=== PATIENT | female | born 1980 | race Hispanic/Latino ===

== ENCOUNTER 2025-06-30 20:27 | Emergency (ER) | payer SELFPAY ==
[~2025-06-30] VITALS: Ht 162.6 cm; Wt 81.6 kg
--- NOTE | 2025-06-30 20:37 | ERN ---
ED Note History of Present Illness Stated Complaint: SUICIDAL IDEATION Chief Complaint: Suicidal Ideation Time Seen by MD: 20:32 Dictation: This is a 44-year-old female who presented to the emergency room via EMS stating that she was tired of life and wanted to . She was quite tearful and was screaming stating she did not want to live. She tried to cut herself with a serrated knife on her forearms. She stated that she has had a long history of depression and she has been drinking all day. She did report that she has had nausea and vomitings and during my evaluation she was extremely emotional tearful and gagging and attempting to vomit. She appeared unkempt and urinated on herself She denied any homicidal ideations or delusions. She also did not have any plan for the suicide. Temperature 97.4 pulse 95 respirations 17 blood pressure 128/75 with a pulse oximetry of 98% on room air Her chronic medical problems include depression and solitary kidney details unclear Allergies: Coded Allergies: No Known Drug Allergies (Unverified Allergy, Unknown, 06/30/25) Past Medical History PSYCH History: depression Family History: Negative Social History: ETOH RN Note Reviewed/Agreed w/PFSH: Yes Review of System Dictation Constitutional: Negative for fever,chills, and weight loss Eyes: Negative for injury, pain,redness, and discharge ENT: Negative for injury,pain or swelling Cardiovascular: Negative for chest pain, palpitations, and edema Respiratory: Negative for shortness of breath, cough, and wheezing, Abdomen/GI: Negative for abdominal pain, nausea, vomiting, diarrhea, and constipation Back: Negative for injury and pain : Negative for injury, bleeding and discharge MS/Extremity: Negative for injury and deformity Skin: Negative for rash, and discoloration Neuro: Negative for headache, weakness, numbness, tingling, and seizure Psych: Positive for suicide ideation, denied homicidal ideation, and hallucinations Initial Vital Sign VS Vital Signs Date Time Temp Pulse Resp B/P (MAP) Pulse Ox O2 Delivery O2 Flow Rate FiO2 06/30/25 20:29 97.3 95 17 128/75 98 Room Air 06/30/25 21:50 0 21 Physical Exam Dictation General: awake, alert, NAD obese female, very tearful emotional stating wants to , unkempt Head/Face: Normocephalic, atraumatic Eyes: PERRL, EOMI, vision at baseline ENT: oral cavity clear, TMs clear, no signs of infection Neck: Trachea midline, supple, no nuchal rigidity Cardiovascular: RRR, normal S1/S2, No MRGs, no JVD Respiratory: CTAB, no respiratory distress, No rales or wheezes Abdomen: Soft, non-tender, non-distended, normal bowel sounds, no guarding or rebound. Skin: Warm, dry, normal turgor, no rash, wet shots from urinating on herself, small cuts on her forearms from self-inflicted injuries-no active bleeding. MS/Extremity: Pulses equal, no cyanosis, neurovascular intact, FROM Neuro: COAx4, GCS 15, strength 5/5, CN 2-12 intact, normal cerebellar exam, normal gait, Psych: Normal behavior, mood, and affect normal Extremities-trace edema without any palpable cords, Homans sign is negative Results (Laboratory/Radiology) Laboratory/Radiology Laboratory Tests Test 06/30/25 20:48 06/30/25 23:12 07/01/25 04:56 White Blood Count 19.6 K/uL (4.8-10.8) H Red Blood Count 4.83 MIL/uL (4.00-5.50) Hemoglobin 13.2 g/dL (12.0-16.0) Hematocrit 40.9 % (36-48) Mean Corpuscular Volume 84.7 fL (79-99) Mean Corpuscular Hemoglobin 27.3 pg (27.0-33.0) Mean Corpuscular Hemoglobin Concent 32.3 g/dL (32.0-36.0) Red Cell Distribution Width 13.7 % (11.0-15.5) Platelet Count 332 K/uL (130-400) Mean Platelet Volume 9.1 fL (7.5-10.5) Immature Granulocyte % (Auto) 0.5 % (0-1) Neutrophils (%) (Auto) 79.7 % (40.0-77.0) H Lymphocytes (%) (Auto) 16.2 % (21.0-51.0) L Monocytes (%) (Auto) 3.0 % (3.0-13.0) Eosinophils (%) (Auto) 0.4 % (0.0-8.0) Basophils (%) (Auto) 0.2 % (0.0-5.0) Neutrophils # (Auto) 15.6 K/uL (1.8-7.7) H Lymphocytes # (Auto) 3.2 K/uL (1.0-4.8) Monocytes # (Auto) 0.6 K/uL (0.1-1.0) Eosinophils # (Auto) 0.07 K/uL (0.00-0.70) Basophils # (Auto) 0.04 K/uL (0.00-0.20) Absolute Immature Granulocyte (auto 0.10 K/uL (0-1) Nucleated Red Blood Cells 0.0 % (0.0-0.19) Sodium Level 136 mmol/L (136-145) Potassium Level 3.6 mmol/L (3.5-5.1) Chloride Level 100 mmol/L (101-111) L Carbon Dioxide Level 27 mmol/L (21-32) Blood Urea Nitrogen 9 mg/dL (7-18) Creatinine 0.8 mg/dL (0.5-1.0) Glomerular Filtration Rate Calc 93 mL/min (>90) Random Glucose 106 mg/dL (70-105) H Total Calcium 8.0 mg/dL (8.5-10.1) L Total Creatine Kinase 111 U/L (21-232) Serum Test, Qualitative NEGATIVE (NEGATIVE) Salicylates Level < 2.8 mg/dL (2.8-20.0) L Acetaminophen Level < 1 mcg/mL (10-30) L Serum Alcohol 239 mg/dL (0-10) H 62 mg/dL (0-10) H Urine Color LIGHT-YELLOW (YELLOW) Urine Appearance CLOUDY (CLEAR) H Urine pH 5.5 (5.0-8.0) Urine Specific [place] 1.017 (1.001-1.031) Urine Protein 70 mg/dL (NEGATIVE) H Urine Glucose (UA) NEGATIVE mg/dL (NEGATIVE) Urine Ketones NEGATIVE mg/dL (NEGATIVE) Urine Occult Blood LARGE (NEGATIVE) H Urine Nitrate NEGATIVE (NEGATIVE) Urine Bilirubin NEGATIVE mg/dL (NEGATIVE) Urine Urobilinogen 0.2 mg/dL (0.2-1.0) Urine Leukocyte Esterase 250 Aarti/uL (NEGATIVE) H Urine RBC 11-25 /HPF (0-1) H Urine WBC 51-100 /HPF (0-1) H Urine Squamous Epithelial Cells FEW /HPF (0-2) Urine Other Crystals (Auto) 3 /HPF (None Seen) Urine Bacteria None /HPF (None Seen) Urine Opiates Screen NEGATIVE (NEGATIVE) Urine Barbiturates Screen NEGATIVE (NEGATIVE) Urine Phencyclidine Screen NEGATIVE (NEGATIVE) Urine Amphetamines Screen NEGATIVE (NEGATIVE) Urine Benzodiazepines Screen NEGATIVE (NEGATIVE) Urine Cocaine Screen NEGATIVE (NEGATIVE) Urine Marijuana (THC) Screen NEGATIVE (NEGATIVE) Amylase Level 69 U/L (25-115) Lipase 38 U/L (16-77) Labs Reviewed?: Yes ED Course ED Course Orders Procedure Category Date Status Time Cbc With Differential LAB 06/30/25 Complete 20:32 Alcohol, Blood LAB 06/30/25 Complete 20:32 Salicylate LAB 06/30/25 Complete 20:32 Acetaminophen LAB 06/30/25 Complete 20:32 Testing, LAB 06/30/25 Complete Serum Hcg 20:32 Urinalysis Profile LAB 06/30/25 Complete 20:32 Creatine Kinase, Total LAB 06/30/25 Complete 20:32 Basic Metabolic Panel LAB 06/30/25 Complete 20:32 Drug Screen Urine LAB 06/30/25 Complete 20:32 Diazepam 5 Mg/Ml 2 Ml PHA 06/30/25 Complete Syg (Valium 5 Mg/M 23:00 M.V.I. Iv [Adult] PHA 07/01/25 Complete (M.V.I. Iv [Adult])... 09:00 Ondansetron 4mg Inj PHA 06/30/25 Complete (Zofran 4mg Inj) 23:00 Culture Urine LACHELLE 06/30/25 In Process 23:24 M.V.I. Iv [Adult] PHA 07/01/25 Complete (M.V.I. Iv [Adult])... 00:30 Ceftriaxone 1g Vial PHA 07/01/25 Complete (Rocephine 1g Inj) 04:30 Ondansetron 4mg Inj PHA 07/01/25 Complete (Zofran 4mg Inj) 05:00 Ondansetron 4mg Inj PHA 07/01/25 Complete (Zofran 4mg Inj) 04:32 Alcohol, Blood LAB 07/01/25 Complete 04:46 Acetaminophen 325 Tab PHA 07/01/25 Complete (Tylenol 325mg Tab 05:00 Amylase LAB 07/01/25 Complete 05:37 Lipase LAB 07/01/25 Complete 05:37 Current Medications Medications (Trade) Dose Ordered Sig/Adi Route PRN Reason Start Time Stop Time Status Last Admin Dose Admin Acetaminophen (TYLenol 325MG TAB) 650 mg ONCE ONCE PO 07/01/25 05:00 07/01/25 05:02 DC 07/01/25 05:13 Ceftriaxone Sodium (ROCEphine 1G INJ) 1 gm ONCE ONCE IVPB 07/01/25 04:30 07/01/25 04:31 DC 07/01/25 04:20 Diazepam (VALium 5 MG/ML 2 ML SYG) 2.5 mg ONCE ONCE IVP 06/30/25 23:00 06/30/25 23:01 DC 06/30/25 23:04 Multivitamins/ Minerals 10 ml/ Folic Acid 1 mg/ Thiamine HCl 100 mg/Sodium Chloride 1,010 ml @ 100 mls/hr DAILY IV 07/01/25 09:00 07/01/25 00:11 DC Multivitamins/ Minerals 10 ml/ Folic Acid 1 mg/ Thiamine HCl 100 mg/Sodium Chloride 1,010 ml @ 100 mls/hr ONCE ONCE IV 07/01/25 00:30 07/01/25 07:46 DC 07/01/25 00:48 Ondansetron HCl (zoFRAN 4MG INJ) 4 mg ONCE ONCE IVP 07/01/25 05:00 07/01/25 05:01 DC 07/01/25 04:41 Ondansetron HCl (zoFRAN 4MG INJ) 4 mg STK-MED ONCE .ROUTE 06/30/25 23:00 06/30/25 23:01 DC 06/30/25 23:04 Ondansetron HCl (zoFRAN 4MG INJ) 4 mg STK-MED ONCE .ROUTE 07/01/25 04:32 07/01/25 04:38 DC Vital Signs Date Time Temp Pulse Resp B/P (MAP) Pulse Ox O2 Delivery O2 Flow Rate FiO2 07/01/25 07:45 98.6 78 17 125/84 99 Room Air* 0 07/01/25 06:46 98.8 85 16 126/67 98 Room Air* 0 21 07/01/25 03:30 86 16 124/70 98 Room Air* 0 06/30/25 21:50 97.5 92 16 122/76 98 Room Air* 0 21 06/30/25 20:29 97.3 95 17 128/75 98 Room Air We will perform diagnostic labs, and administer medications according to the patient's complaint. Once the results are available, will review and personally interpreted the labs to rule out any acute life-threatening emergency the trach require immediate intervention and treatment. I will then re-evaluate the patient after treatment and diagnostic exams have return to determine whether the patient requires any further testing, can safely be discharged home or need further admission to hospital for additional treatment and evaluation. Banana bag, antiemetics and IV fluids initiated 10:00 p.m. labs still pending patient is finally resting after symptomatic treatment. No no indication for any suturing at this time 10:32 p.m. CBC showed a white count of 19.6 platelets 332. BNP 7 reviewed. ETOH level was 239 rest of the tox screens are negative. 11:30 p.m. additional antiemetic given patient resting. We will allow her to sober up and repeat the alcohol level. Behavioral health consultation once she is medically cleared. 2:00 a.m. resting comfortably 4:30 a.m.-repeat alcohol level requested pending at this time, amylase and lipase also requested. 5:15 a.m. amylase and lipase are within normal limits repeat alcohol level 69. Behavioral health specialist consulted 6:52 a.m. behavioral health screener currently actively evaluating the patient. Based on the recommendations final discharge disposition. 7:10 a.m. care transition to Dr. Reeves Medical Decision Making MDM MDM: Differential diagnosis: Psychiatric illness, suicidal ideation, depression anxiety alcohol-induced psychiatric effects Rationale: Tests considered and ordered secondary to shared decision making include: Previous outside records reviewed: Old ER visits. Risk of complication and/or morbidity or mortality of patient management: None Medications-Per medication reconciliation Need for hospitalization: Patient does not meet criteria for hospitalization. Need for emergency major/minor surgery: No Patient was evaluated by mental health facility states they will treat patient in the outpatient facility. Patient is no longer suicidal states he is stable we will follow up with them accordingly. Patient will be discharged in stable condition. Problem List Problem List: (1) Suicidal ideations (2) Depression (3) Alcohol abuse DX & DISP Disposition: Discharge Departure Impression: Primary Impression: Suicidal ideations Additional Impressions: Depression, Alcohol abuse Condition: Stable Additional Instructions: FOLLOW-UP WITH PRIMARY CARE PROVIDER IN 1 TO 2 DAYS. TAKE MEDICATIONS DIRECTED HERE IN THE EMERGENCY ROOM. OKAY TO CONTINUE HOME MEDICATIONS UNLESS OTHERWISE DISCUSSED DURING YOUR VISIT IN THE EMERGENCY ROOM TODAY. RETURN TO YOUR NEAREST EMERGENCY ROOM IF SYMPTOMS WORSEN OR IF THERE IS NO IMPROVEMENT. CALL 911 IF YOU NEED IMMEDIATE ASSISTANCE. TAKE TYLENOL AENA-FGL-HXCHSCD NEEDED AND IF NO CONTRAINDICATIONS ARE PRESENT. INCREASE ORAL HYDRATION. A WOUND CULTURE OR URINE CULTURE WAS ORDERED HERE IN THE EMERGENCY ROOM DEPARTMENT PLEASE FOLLOW-UP WITH PRIMARY CARE PROVIDER AND ADVISE THEM TO GET REPORTS FROM OUR FACILITY. IF YOU HAD ANY ONI WRAP/SPLINTS THAT WERE APPLIED HERE, PLEASE DO NOT REMOVE THEM UNTIL YOU SEE YOUR PRIMARY CARE OR SPECIALTY. Referrals: Referrals: SELF,REFERRAL (PCP) GYPSY AGGARWAL MD Time of Disposition: 07:25 NICOLASA PANDA MD Jun 30, 2025 20:37 MARRY REEVES MD Jul 01, 2025 07:26
--- NOTE | 2025-06-30 20:45 | NUR ---
PATIENT AMBULATED TO BATHROOM, DID NOT COLLECT URINE SPECIMEN
[2025-06-30 20:55] LABS: IMMATURE GRANULOCYTE ABSOLUTE 0.10 K/uL (0-1); NUCLEATED RED BLOOD CELLS 0.0 % (0.0-0.19); PLATELET COUNT (AUTO) 332 K/uL (130-400); RED BLOOD CELL COUNT(AUTO) 4.83 MIL/uL (4.00-5.50); RED CELL DISTRIBUTION WIDTH 13.7 % (11.0-15.5); WHITE BLOOD COUNT (AUTO) 19.6 K/uL (4.8-10.8)
[2025-06-30 21:10] LABS: CREATININE 0.8 mg/dL (0.5-1.0); GLOMERULAR FILTR. RATE CALC 93 mL/min (>90); GLUCOSE,RANDOM 106 mg/dL (70-105); SODIUM SERUM 136 mmol/L (136-145); UREA NITROGEN, BLOOD 9 mg/dL (7-18)
[2025-06-30 21:16] LABS: ALCOHOL, BLOOD 239 mg/dL (0-10); CREATINE KINASE, TOTAL 111 U/L (21-232)
--- NOTE | 2025-06-30 22:49 | NUR ---
PATIENT URINATED ON SELF, ELOPED THROUGH EMS [facility], ASSISTED PATIENT BACK INTO ER. PATIENT STATING SHE WANTS TO GO HOME, STATES SHE HAS AN AUTISTIC SON WHO NEEDS MEDICATIONS. EXPLAINED TO PATIENT THAT SHE MAY NOT LEAVE DUE TO BEING INTOXICATED, STATES SHE CAN CALL HER DAUGHTER TO PICK HER UP. ATTEMPTED TO CALL DAUGHTER AT PHONE NUMBER PROVIDED BY PATIENT, PATIENT'S PHONE NUMBER IS NOT ACCEPTING CALLS. DAUGHTER FEBRUARY, PHONE # [phone]
[2025-06-30 23:23] LABS: APPEARANCE,URINE CLOUDY (CLEAR); GLUCOSE, URINE (UA) NEGATIVE (NEGATIVE); LEUKOCYTE ESTERASE ,URINE 250 Leu/uL (NEGATIVE); NITRATE,URINE NEGATIVE (NEGATIVE); OCCULT BLOOD,URINE LARGE (NEGATIVE)
[2025-06-30 23:24] LABS: ADD UA MICROSCOPIC YES
[2025-06-30 23:25] LABS: SQUAMOUS EPITHELIAL CELL,UR FEW /HPF (0-2); UNCLASSIFIED CRYSTAL 3 /HPF (None Seen)
[2025-06-30 23:37] LABS: AMPHET/METH SCREEN,URINE NEGATIVE (NEGATIVE); BARBITURATE SCREEN, URINE NEGATIVE (NEGATIVE); CANNABINOID SCREEN,URINE NEGATIVE (NEGATIVE); COCAINE SCREEN,URINE NEGATIVE (NEGATIVE)
[2025-07-01] MEDS: M.V.I. IV [ADULT] 10 ML, FOLic ACID 5 MG/ML VIAL 1 MG, THIAMINE HCL 100 MG in 0.9%NACL ... IV ONE (00:48)
--- NOTE | 2025-07-01 04:14 | NUR ---
RECEIVED CALL FROM PATIENTS DAUGHTER FOR STATUS UPDATE, CORRECT PHONE # [phone]
--- NOTE | 2025-07-01 04:34 | NUR ---
PATIENT ACTIVELY VOMITING, INCONTINENT OF URINE
--- NOTE | 2025-07-01 04:55 | NUR ---
PATIENT REPORTS HEADACHE, REQUESTING PAIN MEDICATION, DR PANDA AWARE AND VERBAL ORDERS RECEIVED
--- NOTE | 2025-07-01 05:21 | NUR ---
CONTACTED [facility] CRISIS LINE TO INITIATE SCREENING, SPOKE WITH KUMAR, WILL CONTACT LABORATORY ADMINISTRATIVE DIRECTORCOURIER DRIVER
--- NOTE | 2025-07-01 05:42 | NUR ---
PATIENT IS AWAKE, MORE RESPONSIVE TO QUESTIONS ABOUT SI AND PLAN. PATIENT REPORTS DOMESTIC ISSUES, DISCOVERED HER LONGTIME PARTNER AND FATHER OF CHILDREN HAS BEEN HAVING AN AFFAIR, ARGUED WITH PARTNER AND PARTNER LEFT TO BE WITH THE WOMAN HE HAS BEEN HAVING AN AFFAIR WITH. PATIENT IS TEARFUL STATING SHE GAVE HIM EVERYTHING FOR OVER 20 YEARS JUST TO LEAVE HER. STATES SHE IS TIRED OF LIFE, ALSO SPEAKS ABOUT 19 YEAR OLD SON WITH AUTISM, CONCERNED ABOUT WHAT WILL HAPPEN TO HER SON IF SHE DIES. DOES NOT HAVE A SPECIFIC PLAN FOR SUICIDE.
--- NOTE | 2025-07-01 06:12 | NUR ---
LEIDY, SCREENER WITH [facility] ARRIVED TO ER. FACESHEET, LAB RESULTS AND H&P PROVIDED.
--- NOTE | 2025-07-01 06:22 | NUR ---
SCREENER AT BEDSIDE
[2025-07-01 07:45] VITALS: BP 125/84; PULSE 78; RESP 17; TEMP 98.6; O2SAT 99
[2025-07-01] MEDS ORDERED: M.V.I. IV [ADULT] 10 ML, FOLic ACID 5 MG/ML VIAL 1 MG, THIAMINE HCL 100 MG in 0.9%NACL ... IV SCH (09:00)
== END 2025-07-01 07:45 | disposition home or self-care (01) ==
LOC: EDH 20:27
DX: R45.851 Suicidal ideations (principal); F32.A Depression, unspecified; F10.10 Alcohol abuse, uncomplicated; Z79.899 Other long term (current) drug therapy
CPT/HCPCS: 99285; 96375; 82150; 82550; 80048; 80305; 84703; 83690; 85025; 87086; 81001; 36415 ×2; 96365; 96367; 96376; G0481; J3360; J2405 ×2; J7030; J0696; J3411; J3490